=== PATIENT | female | born 1945 | race African-American/Black ===

== ENCOUNTER 2018-07-16 12:26 | Emergency (ER) | payer OTHER, MEDICAID ==
[~2018-07-16] VITALS: Ht 172.7 cm; Wt 93.0 kg
[~2018-07-16 12:26] MED LIST: BENAZEPRIL HCL20 MG ORAL; DEPAKOTE250 MG PO; DONEPEZIL HCL10 M2 ORAL; FLUOXETINE HCL40 MG ORAL; GABAPENTIN400 MG ORAL; LORAZEPAM0.5 MG ORAL; MACROBID100 MG ORAL; MELOXICAM15 MG PO; NIFEDIPINE ER60 M3 ORAL; OMEPRAZOLE40 M1 ORAL; PERCOCET 5-3251 EACH ORAL; apap/codeine PO
[2018-07-16] MEDS ORDERED: Methocarbamol 750mg tab ORAL ONE (13:00)
[2018-07-16 13:07] VITALS: BP 126/68
[2018-07-16] MEDS ORDERED: IBUPROFEN600 MG ORAL (13:08)
[2018-07-16] MEDS ORDERED: ROBAXIN-750750 MG PO (13:08)
--- NOTE | 2018-07-16 13:08 | NUR ---
ED Nurse Note: Pt presents with neck, shoulder and right arm that started on Tuesday. Pt denies any injuries, she is treating her pain with Ibuprofen with no relief. pt is complaining of 8/10 pain. seen by NOAM Bernal. with new orders made and carried out. pt medicted and tolerated well.
[2018-07-16 13:13] VITALS: BP 126/68
--- NOTE | 2018-07-16 13:13 | NUR ---
ER DISCHARGE NOTE: Patient is cleared to be discharged per ERMD, pt is aox4, on room air, with stable vital signs. pt was given dc and prescription instructions, pt was able to verbalize understanding, pt id band removed without complications. pt is able to ambulate with steady gait. pt took all belongings.
--- NOTE | 2018-07-16 14:57 | Emergency Room Report ---
History of Present Illness General Chief Complaint: Neck Pain Source: Patient Present Illness HPI The patient is a 72 year-old female presenting for 3 days of right-sided neck pain. This began after waking up from sleep. Pain has been constant 8 out of 10 dull ache and does not radiate. Worse with head movement. She denies any known injury. She has tried ibuprofen which only helps slightly. She denies any other symptoms including chest pain, shortness of breath, rash, neck stiffness, headache Allergies: Coded Allergies: PENICILLIN (Unverified Allergy, Unknown, 10/29/14) Patient History Past Medical History: see triage record Pertinent Family History: none Reviewed Nursing Documentation: PMH: Agreed; PSxH: Agreed Nursing Documentation-PMH Past Medical History: No History, Except For Hx Hypertension: Yes Hx Diabetes: Yes Hx Cerebrovascular Accident: Yes Review of Systems All Other Systems: negative except mentioned in HPI Physical Exam Vital Signs Date Time Temp Pulse Resp B/P (MAP) Pulse Ox O2 Delivery O2 Flow Rate FiO2 07/16/18 12:46 97.3 82 16 126/68 98 Room Air Sp02 EP Interpretation: reviewed, normal General Appearance: no apparent distress, alert, GCS 15, non-toxic Head: normocephalic, atraumatic Eyes: bilateral eye normal inspection, bilateral eye PERRL ENT: hearing grossly normal, normal voice Neck: full range of motion, supple, no bony tend, tender lateral - R Respiratory: chest non-tender, lungs clear, normal breath sounds, speaking full sentences Cardiovascular #1: regular rate, rhythm, no edema Musculoskeletal: back normal, gait/station normal, normal range of motion Neurologic: alert, oriented x3, responsive, motor strength/tone normal, sensory intact, speech normal Psychiatric: judgement/insight normal, memory normal, mood/affect normal, no suicidal/homicidal ideation Skin: normal color, no rash, warm/dry, well hydrated Medical Decision Making PA Attestation Dr. Yung is my supervising physician. Patient management was discussed with my supervising physician Diagnostic Impression: Primary Impression: Neck muscle strain Qualified Codes: S16.1XXA - Strain of muscle, fascia and tendon at neck level , initial encounter ER Course The patient is a 72 year-old female presenting for 3 days of right-sided neck pain. Differential diagnosis considered but not limited to: Muscle strain, cervical sprain, fracture, among others Physical exam: Afebrile. No apparent distress Neck is soft and supple. There is tenderness to palpation over the right cervical paraspinal muscles and trapezius. Full active range of motion is intact RRR Lungs clear to auscultation bilaterally The patient was told to use heat therapy at home with massage. She is given prescription for muscle relaxer and Motrin. She is told to follow-up with primary doctor within the next week. ER precautions are given Last Vital Signs Date Time Temp Pulse Resp B/P (MAP) Pulse Ox O2 Delivery O2 Flow Rate FiO2 07/16/18 13:13 97.3 76 16 126/68 98 Room Air Status: improved Disposition: HOME, SELF-CARE Condition: Improved Scripts Methocarbamol* (ROBAXIN-750*) 750 Mg Tablet 750 MG PO TID, #21 TAB 0 Refills Prov: OMARI CIFUENTES 07/16/18 Ibuprofen* (MOTRIN*) 600 Mg Tablet 600 MG ORAL Q8H PRN for For Pain, #30 TAB 0 Refills Prov: OMARI CIFUENTES 07/16/18 Referrals: NON PHYSICIAN (PCP) Patient Instructions: Cervical Sprain, Muscle Strain Additional Instructions: I discussed my findings with the patient. All questions and concerns have been answered. Treatment and medication compliance have been addressed. I advised the patient that they need to follow up with PMD in 3-5 days. Return to ED if pain remains or worsens, numbness or tingling occurs, new rash is noticed, fever is noticed, or if needed for any reason. Patient verbalized understanding of discharge instructions. OMARI CIFUENTES Jul 16, 2018 14:57
== END 2018-07-16 14:22 | disposition home or self-care (01) ==
LOC: EMR 12:45
DX: S16.1XXA Strain of muscle, fascia and tendon at neck level, initial encounter (principal); E11.9 Type 2 diabetes mellitus without complications; I10 Essential (primary) hypertension; Z86.73 Personal history of transient ischemic attack (TIA), and cerebral infarction without residual deficits; Z88.0 Allergy status to penicillin; X58.XXXA Exposure to other specified factors, initial encounter; Y92.9 Unspecified place or not applicable
CPT/HCPCS: 99282